=== PATIENT | female | born 2000 | race Caucasian/White ===

== ENCOUNTER 2024-10-02 18:42 | Emergency (ER) | payer BC ==
[2024-10-06 16:41] LABS: LYME BY PCR Not Detected
== END 2024-10-02 20:28 | disposition home or self-care (01) ==
LOC: JD.ED 18:42
DX: S30.860A Insect bite (nonvenomous) of lower back and pelvis, initial encounter (principal); K12.0 Recurrent oral aphthae; W57.XXXA Bitten or stung by nonvenomous insect and other nonvenomous arthropods, initial encounter
CPT/HCPCS: 87476; 87529; 99282